=== PATIENT | male | born 1965 | race Caucasian/White ===

== ENCOUNTER → 2017-05-30 | Outpatient (CLI) | payer OTHER ==
--- NOTE | 2017-06-04 14:22 | P.ARTDOP ---
Arterial Doppler LOWER EXTREMITY ARTERIAL DOPPLER: DATE OF SERVICE: 05/29/2017 Reason for study: Cold left foot. Doppler waveforms: Multiphasic bilaterally throughout. Pulse volume recording: Normal configuration. Pressure gradients: None. Ankle-brachial indices: Greater than 1 bilaterally. Toe pressures: 81 on the right, 56 on the left Impression: Normal study proximally. Decreased toe pressures on the left but waveforms on the digits look excellent. Clinical correlation recommended. Suspect etiology more likely vasospastic phenomenon..
== END | disposition home or self-care (01) ==
LOC: RADUSWWP 07:48
PROVIDERS: ATTEND Family Medicine
DX: I99.8 Other disorder of circulatory system (principal)
CPT/HCPCS: 93923

== ENCOUNTER → 2021-08-04 | Outpatient (CLI) | payer OTHER ==
--- NOTE | 2021-08-04 10:29 | MR ---
EXAMINATION TYPE: MR knee RT wo con DATE OF EXAM: 08/04/2021 COMPARISON: None. HISTORY: Rt knee pain, meniscus tear TECHNIQUE: Multiplanar, multisequence imaging of the right knee is performed without IV contrast. FINDINGS: MEDIAL MENISCUS: Some increased signal posterior horn with extension to inferior articular surface. LATERAL MENISCUS: Anterior and posterior horns are intact without tear. CRUCIATE LIGAMENTS: The posterior cruciate ligament is intact. Increased signal and fraying of the an terior cruciate ligament without full-thickness tearing. COLLATERAL LIGAMENTS: The medial collateral ligament and lateral collateral ligament complex are inta ct. Mild fluid signal surrounds the medial collateral ligament. EXTENSOR MECHANISM: Visualized quadriceps and patellar tendons are intact. EFFUSION: Large suprapatellar joint effusion. POPLITEAL CYST: Tiny popliteal/calixto cyst axial image 15. TRICOMPARTMENT SPACES: Moderate to severe narrowing medial tibiofemoral compartment with mild spurrin g. Mild to moderate narrowing and mild spurring patellofemoral compartment. CARTILAGE: Significant cartilaginous loss with areas of full-thickness loss medial tibiofemoral mireya rtment. BONE MARROW SIGNAL: There is a heterogeneous diminished T1 and increased T2 signal along the distal m edial femoral condyle. OTHER: No additional significant abnormality is appreciated. IMPRESSION: 1. Moderate to severe medial tibiofemoral compartment degenerative changes as detailed above quite pr ominent for patient's chronologic age. Areas of full-thickness cartilaginous loss and reactive osseou s changes noted. 2. Large suprapatellar joint effusion. 3. At least an intrasubstance tear suspected full-thickness tear posterior horn medial meniscus. 4. Partial tearing of the anterior cruciate ligament. 5. Grade 1 MCL sprain injury. 6. Tiny popliteal cyst.
== END | disposition home or self-care (01) ==
LOC: RADMRIMAIN 09:07
PROVIDERS: ATTEND Orthopaedic Surgery
DX: M71.21 Synovial cyst of popliteal space [Baker], right knee (principal); S83.411A Sprain of medial collateral ligament of right knee, initial encounter; M25.461 Effusion, right knee; M17.11 Unilateral primary osteoarthritis, right knee; S83.241A Other tear of medial meniscus, current injury, right knee, initial encounter; X58.XXXA Exposure to other specified factors, initial encounter

== ENCOUNTER 2021-08-09 06:46 | Day surgery (SDC) | payer OTHER ==
[~2021-08-09 06:46] MED LIST: LACTATED RINGERS 1,000 ML IV SCH; LIDOCAINE 1% (10MG/ML) FOR IV START INTRADERMA PRN
[2021-08-09 07:32] LABS: Glucose,Whole Blood 140 mg/dL (75-99)
[2021-08-09 07:36] VITALS: TEMP 97.2
[2021-08-09] MEDS ORDERED: PROPOFOL 10 MG/ML 20 ML VIAL IV ONE (07:45)
--- NOTE | 2021-08-09 08:02 | P.GSHP ---
History of Present Illness H&P Date: 08/09/21 Chief Complaint: Screening colonoscopy This is a 56-year-old male presents today for screening colonoscopy. Patient denies any significant GI complaints. Past Medical History Past Medical History: Asthma, Diabetes Mellitus, Osteoarthritis (OA) Additional Past Medical History / Comment(s): CHILDHOOD ASTHMA History of Any Multi-Drug Resistant Organisms: None Reported Past Surgical History: Appendectomy, Orthopedic Surgery Additional Past Surgical History / Comment(s): RT HAND SURGERY, LEFT KNEE ARTHROSCOPIC SURGERY X2, Past Anesthesia/Blood Transfusion Reactions: No Reported Reaction Past Psychological History: No Psychological Hx Reported Smoking Status: Former smoker Past Alcohol Use History: Occasional Additional Past Alcohol Use History / Comment(s): STARTED SMOKING AT AGE 17 QUIT SMOKING AT AGE 35 SMOKED 1/2PPD Past Drug Use History: Marijuana Additional Drug Use History / Comment(s): OCCASIONAL USE, INSTRUCTED TO HOLD 24 HOURS PRIOR TO PROCEDURE. - Past Family History Father Family Medical History: Cancer Additional Family Medical History / Comment(s): LUNG Mother Family Medical History: CVA/TIA Medications and Allergies Home Medications Medication Instructions Recorded Confirmed Type Naproxen Sodium [Aleve] 220 mg PO DIRECTED PRN 04/05/15 08/09/21 History Pioglitazone [Actos] 30 mg PO DAILY 08/08/21 08/09/21 History metFORMIN HCL [Glucophage] 500 mg PO TID 08/08/21 08/09/21 History Allergies Allergy/AdvReac Type Severity Reaction Status Date / Time cement mortar Allergy Rash/Hives Uncoded 08/09/21 07:17 Surgical - Exam Vital Signs Temp Pulse Resp BP Pulse Ox 97.2 F L 73 18 121/66 97 08/09/21 07:28 08/09/21 07:28 08/09/21 07:28 08/09/21 07:28 08/09/21 07:28 - General well developed, well nourished, no distress - Eyes PERRL - ENT normal pinna - Neck no masses - Respiratory normal expansion - Cardiovascular Rhythm: regular - Abdomen Abdomen: soft, non tender Results - Labs Abnormal Lab Results - Last 24 Hours (Table) 08/09/21 Range/Units 07:30 POC Glucose (mg/dL) 140 H (75-99) mg/dL Assessment and Plan Assessment: We'll perform screening colonoscopy.
--- NOTE | 2021-08-09 08:05 | P.OP ---
Date of Procedure: 08/09/21 Preoperative Diagnosis: Screening colonoscopy Postoperative Diagnosis: Diverticulosis Procedure(s) Performed: Colonoscopy Anesthesia: MAC Surgeon: Jason Antonio Pathology: none sent Condition: stable Disposition: PACU Description of Procedure: Patient's placed on the endoscopy table in the lateral position. He received IV sedation. Digital rectal exam was performed which revealed no abnormalities. Flexible colonoscope was then placed patient anus passed throughout the entire colon. The ileocecal valve was visually's. The cecum was visualized. The cecum was normal. The ascending colon, transverse colon appeared normal. In the descending and sigmoid there was mild diverticular changes. Scope was then brought back the rectum and this appeared normal. Scope withdrawn for patient.
[2021-08-09 08:08] VITALS: RESP 16
[2021-08-09 08:16] VITALS: BP 112/78; PULSE 78
[2021-08-09 08:43] LABS: Glucose,Whole Blood 113 mg/dL (75-99)
== END 2021-08-09 08:41 | disposition home or self-care (01) ==
LOC: ORWHC2ENDO 06:46
PROVIDERS: ATTEND Surgery
DX: Z12.11 Encounter for screening for malignant neoplasm of colon (principal); K57.30 Diverticulosis of large intestine without perforation or abscess without bleeding; J45.909 Unspecified asthma, uncomplicated; E11.9 Type 2 diabetes mellitus without complications; M19.90 Unspecified osteoarthritis, unspecified site; Z90.49 Acquired absence of other specified parts of digestive tract; Z98.890 Other specified postprocedural states; Z87.891 Personal history of nicotine dependence; Z80.1 Family history of malignant neoplasm of trachea, bronchus and lung; Z86.73 Personal history of transient ischemic attack (TIA), and cerebral infarction without residual deficits; Z79.84 Long term (current) use of oral hypoglycemic drugs; Z91.09 Other allergy status, other than to drugs and biological substances
CPT/HCPCS: J2704; G0121

== ENCOUNTER → 2023-04-01 | Outpatient (CLI) | payer OTHER ==
--- NOTE | 2023-04-01 21:12 | US ---
EXAMINATION TYPE: US arterial LE single level DATE OF EXAM: 04/01/2023 2:23 PM CLINICAL INDICATION: Male, 57 years old with history of R09.89 OTH SYMPTOMS AND SIGNS INVOLVING THE C IRC A; Patient's right foot gets cold. Decreased DP pulses per order. History of: Smoker: Previous Hypertension: No Diabetic: Yes Hyperlipidemia: No TIA/CVA: No Previous Vascular Surgery: No CAD: No NC: No Vascular Ulcers: No Claudication: None Gangrene: None Doppler Waveforms: Right: Right D[employer]ERICAL CONTROL appears to be monophasic. Left: Left DPA appears to be monophasic. Right Brachial Pressure: 125 Left Brachial Pressure: 113 Ankle-Brachial Indices: Right: 1.14 Left: 1.08 Toe Brachial Indices: Right: 0.81 Left: 0.66 Monophasic waveforms are within the left dorsalis pedis and within the great toes bilaterally. Monoph asic waveform may be within the right posterior tibial vessel. IMPRESSION: 1. Moderate narrowing left great toe. Milder narrowing is at the right great toe
== END | disposition home or self-care (01) ==
LOC: RADUSWWP 13:43
PROVIDERS: ATTEND Family Medicine
DX: R09.89 Other specified symptoms and signs involving the circulatory and respiratory systems (principal); M20.5X1 Other deformities of toe(s) (acquired), right foot; M20.5X2 Other deformities of toe(s) (acquired), left foot
CPT/HCPCS: 93922